=== PATIENT | male | born 1975 ===

== ENCOUNTER 2017-10-30 20:34 | Observation (INO) | payer SELFPAY ==
[2017-10-30] MEDS ORDERED: Multivitamin (MVI) 10 ML, Thiamine 100 MG, Folic Acid 1 MG in Dextrose 5%/0.45% NS 1,00... IV ONE (22:21)
[2017-10-30 22:53] LABS: BASO % 0.7 % (0.0-2.0); EOS % 0.4 % (0.0-4.0); HEMOGLOBIN 15.1 g/dL (12.0-18.0); LYMPH # 1.7 K/uL (1.0-4.3); MEAN CELL VOLUME 91.2 fl (80.0-94.0); MEAN CORPUSCULAR HEMOGLOBIN 30.9 pg (27.0-31.0); MEAN CORPUSCULAR HGB CONC 33.8 g/dL (33.0-37.0); MEAN PLATELET VOLUME 9.5 fl (7.2-11.7); MONO # 0.2 K/uL (0.0-0.8); MONO % 3.2 % (0.0-10.0); NEUT # 3.9 K/uL (1.8-7.0); NEUT % 66.7 % (50.0-75.0); NRBC % 0.3 % (0.0-0.0); RBC 4.89 Mil/uL (4.40-5.90); RED CELL DISTRIBUTION WIDTH 13.2 % (11.5-14.5); WHITE BLOOD COUNT 5.9 K/uL (4.8-10.8)
--- NOTE | 2017-10-30 22:59 | ED PDOC ---
HPI: Psych/Substance Abuse Chief Complaint (Provider): Alcohol Ingestion ED Caveat: Intoxicated History Per: Patient History/Exam Limitations: no limitations Onset/Duration Of Symptoms: Mins (prior to arrival) Current Symptoms Are (Timing): Still Present Additional Complaint(s): 42 year old male brought in for alcohol intoxication. Patient admits to drinking tonight. Because of his condition, there is a limited history. PMD: none provided <Paulie Dela Cruz - Last Filed: 10/31/17 01:19> <Natividad Hutton PA-C - Last Filed: 10/31/17 01:41> Time Seen by Provider: 10/30/17 21:09 Chief Complaint (Nursing): Alcohol Ingestion Past Medical History Reviewed: Historical Data, Nursing Documentation, Vital Signs, Unable To Obtain (due to intoxication) Vital Signs: Last Vital Signs Temp 98.4 F 10/30/17 20:47 Pulse 94 H 10/30/17 22:35 Resp 20 10/30/17 22:35 BP 100/60 10/30/17 22:35 Pulse Ox 95 10/30/17 22:35 - Family History Family History: States: Unknown Family Hx <Paulie Dela Cruz - Last Filed: 10/31/17 01:19> Vital Signs: Last Vital Signs Temp 98.4 F 10/30/17 20:47 Pulse 94 H 10/30/17 22:50 Resp 17 10/30/17 22:50 BP 124/99 H 10/30/17 22:50 Pulse Ox 95 10/31/17 01:24 <Natividad Hutton PA-C - Last Filed: 10/31/17 01:41> - Allergies Allergies/Adverse Reactions: Allergies Allergy/AdvReac Type Severity Reaction Status Date / Time No Known Allergies Allergy Verified 10/30/17 20:47 Review of Systems ROS Statement: Except As Marked, All Systems Reviewed And Found Negative Review Of Systems: ROS cannot be obtained secondary to pt's inabilty to answer questions. (due to intoxication) <Paulie Dela Cruz - Last Filed: 10/31/17 01:19> Physical Exam - Reviewed Nursing Documentation Reviewed: Yes Vital Signs Reviewed: Yes - Physical Exam Comments: GENERAL APPEARANCE: Patient is intoxicated, smells of alcohol, (-) signs of visible injury SKIN: Warm, dry; (-) cyanosis HEAD: (-) scalp swelling, (-) scalp tenderness. EYES: (-) conjunctival pallor, (-) scleral icterus, (-) nystagmus, (+) PEERL, EOMI, normal inspection ENMT: Mucous membranes dry. Airway patent: (-) stridor. NECK: (+) normal ROM (+) supple CHEST AND RESPIRATORY: (+) breath sounds equal. ABDOMEN: Soft, (-) distention, (-) tenderness, (-) guarding. NEURO AND PSYCH: Mental status as above. <Paulie Dela Cruz - Last Filed: 10/31/17 01:19> - Laboratory Results Result Diagrams: 10/30/17 22:40 10/30/17 22:40 - ECG O2 Sat by Pulse Oximetry: 95 (RA) Pulse Ox Interpretation: Normal <Paulie Dela Cruz - Last Filed: 10/31/17 01:19> - Laboratory Results Result Diagrams: 10/30/17 22:40 10/30/17 22:40 <Natividad Hutton PA-C - Last Filed: 10/31/17 01:41> Medical Decision Making Medical Decision Making: Time: 22:20 Initial Plan: --alcohol serum --CMP --CBC with differentials --Normal Saline 1,000 mls/hr IV --1:1 observation --Restraint: violent or risk of elopement Fingerstick was 440. Therefore labs were drawn, 1 L NS Bolus IV ordered. Labs reviewed, CBC within normal limits, CMP patient's glucose was 505. Patient noted to have anion gap. VBG ordered. VBG shows acidosis with pH 7.3 but CO2 was within normal limits. Repeat fingerstick after NS Bolus 334. Second Bolus ordered and Insulin IV administered. On reevaluation, patient is arousable however speaking is still slurred and speaking in [place]. When asked about medications for diabetes, he is unable to provide a coherent answer. Case discussed with Dr. Jackson, who agrees with plan for further inpatient observation with Telemetry for diagnoses for diagnosis of diabetes and hyperglycemia, He agrees with current treatment at this time. Scribe Attestation: Documented by Alexandrea Gardner, acting as a scribe for Natividad Hutton PA-C. Provider Scribe Attestation: All medical record entries made by the Scribe were at my direction and personally dictated by me. I have reviewed the chart and agree that the record accurately reflects my personal performance of the history, physical exam, medical decision making, and the department course for this patient. I have also personally directed, reviewed, and agree with the discharge instructions and disposition. <Paulie Dela Cruz - Last Filed: 10/31/17 01:19> Disposition <Paulie Dela Cruz - Last Filed: 10/31/17 01:19> - Patient ED Disposition Is Patient to be Admitted: Yes - Disposition Disposition Time: 01:00 <Natividad Hutton PA-C - Last Filed: 10/31/17 01:41> - Clinical Impression Clinical Impression: Alcohol intoxication, Dehydration, Hyperglycemia - Disposition Condition: STABLE - PA / [employer] / Resident Statement / has reviewed & agrees with the documentation as recorded. <Natividad Hutton PA-C - Last Filed: 10/31/17 01:41>
[2017-10-30] MEDS ORDERED: Sodium Chloride 0.9% 1,000 ML IV SCH (23:00)
[2017-10-30 23:56] LABS: ALB/GLOB RATIO 1.3 (1.0-2.1); ALBUMIN 4.5 g/dL (3.5-5.0); ALT/SGPT 28 U/L (21-72); AST/SGOT 47 U/L (17-59); BLOOD UREA NITROGEN 14 mg/dl (9-20); CALCIUM 9.3 mg/dL (8.4-10.2); GFR AFRICAN-AMERICAN > 60; GFR NON-AFRICAN AMERICAN > 60
[2017-10-31 01:03] LABS: VENOUS BLOOD GAS BASE EXCESS -5.5 mmol/L (0.0-2.0); VENOUS BLOOD GAS PCO2 42 mmHg (40-60); VENOUS BLOOD GAS PO2 78 mm/Hg (30-55)
[2017-10-31] MEDS ORDERED: Sodium Chloride 0.9% 1,000 ML IV STA (01:04)
[2017-10-31] MEDS ORDERED: Insulin Regular 100 units/ml IV STA (01:04)
--- NOTE | 2017-10-31 01:31 | CP.PCM.HP ---
History of Present Illness - History of Present Illness History of Present Illness: CC: EtOH intoxication; found with elevated serum glucose/acidosis HPI: This is a 42 y/o male with DM2 and EtOH abuse. He comes in after drinking heavily with elevated ser glucose and acidosis. Denies ingesting anything besides EtOH. Unclear when he last took his medications. Given his intoxication , history is dubious. MHx: DM2, EtOH abuse SHx: Unable to obtain due to intoxication Allergies: NKDA Medications: unknown at this time Family Hx: Cannot obtain due to intoxication Social Hx: Cannot obtain living situation, patient does clearly abuse EtOH, unknown tobacco Present on Admission - Present on Admission Any Indicators Present on Admission: No Meds Allergies/Adverse Reactions: Allergies Allergy/AdvReac Type Severity Reaction Status Date / Time No Known Allergies Allergy Verified 10/30/17 20:47 Physical Exam - Constitutional Additional comments: intoxicated - Head Exam Head Exam: ATRAUMATIC, NORMOCEPHALIC - Eye Exam Eye Exam: EOMI, PERRL - ENT Exam ENT Exam: Mucous Membranes Dry - Neck Exam Neck exam: Positive for: Full Rom - Respiratory Exam Respiratory Exam: Clear to Auscultation Bilateral, NORMAL BREATHING PATTERN - Cardiovascular Exam Cardiovascular Exam: REGULAR RHYTHM, +S1, +S2 - GI/Abdominal Exam GI & Abdominal Exam: Normal Bowel Sounds, Soft - Extremities Exam Extremities exam: Positive for: full ROM, normal inspection - Neurological Exam Neurological exam: Alert, CN II-XII Intact, Oriented x3 - Skin Skin Exam: Dry, Warm Results - Vital Signs Recent Vital Signs: Last Vital Signs Temp 98.4 F 10/30/17 20:47 Pulse 94 H 10/30/17 22:50 Resp 17 10/30/17 22:50 BP 124/99 H 10/30/17 22:50 Pulse Ox 95 10/31/17 01:24 - Labs Result Diagrams: 10/30/17 22:40 10/30/17 22:40 Labs: Laboratory Results - last 24 hr 10/30/17 10/30/17 10/30/17 22:40 22:40 22:41 WBC 5.9 RBC 4.89 Hgb 15.1 Hct 44.6 MCV 91.2 MCH 30.9 MCHC 33.8 RDW 13.2 Plt Count 311 MPV 9.5 Neut % (Auto) 66.7 Lymph % (Auto) 29.0 [place] % (Auto) 3.2 Eos % (Auto) 0.4 Baso % (Auto) 0.7 Neut # (Auto) 3.9 Lymph # (Auto) 1.7 [place] # (Auto) 0.2 Eos # (Auto) 0.0 Baso # (Auto) 0.0 pO2 VBG pH VBG pCO2 VBG HCO3 VBG Total CO2 VBG O2 Sat (Calc) VBG Base Excess VBG Potassium Glucose Lactate FiO2 Crit Value Called To Crit Value Called By Crit Value Read Back Blood Gas Notified Time Sodium 144 Potassium 4.9 Chloride 99 Carbon Dioxide 21 L Anion Gap 29 H BUN 14 Creatinine 0.6 L Est GFR ( Amer) > 60 Est GFR (Non-Af Amer) > 60 POC Glucose (mg/dL) 440 H* Random Glucose 505 H* Calcium 9.3 Total Bilirubin 1.0 AST 47 ALT 28 Alkaline Phosphatase 80 Total Protein 7.8 Albumin 4.5 Globulin 3.3 Albumin/Globulin Ratio 1.3 Venous Blood Potassium Alcohol, Quantitative 375 H* 10/31/17 10/31/17 00:51 01:10 WBC RBC Hgb Hct MCV MCH MCHC RDW Plt Count MPV Neut % (Auto) Lymph % (Auto) [place] % (Auto) Eos % (Auto) Baso % (Auto) Neut # (Auto) Lymph # (Auto) [place] # (Auto) Eos # (Auto) Baso # (Auto) pO2 78 H VBG pH 7.30 L VBG pCO2 42 VBG HCO3 20.5 VBG Total CO2 22.0 VBG O2 Sat (Calc) 94.2 H VBG Base Excess -5.5 L VBG Potassium 3.8 Glucose 514 H* Lactate 4.9 H* FiO2 21.0 Crit Value Called To Jose De Jesus ordonez md Crit Value Called By 302 Crit Value Read Back Y Blood Gas Notified Time 103 Sodium 142.0 Potassium Chloride 103.0 Carbon Dioxide Anion Gap BUN Creatinine Est GFR ( Amer) Est GFR (Non-Af Amer) POC Glucose (mg/dL) 363 H Random Glucose Calcium Total Bilirubin AST ALT Alkaline Phosphatase Total Protein Albumin Globulin Albumin/Globulin Ratio Venous Blood Potassium 3.8 Alcohol, Quantitative Assessment & Plan (1) Elevated ETOH level Assessment and Plan: 42 y/o male presenting with elevated serum glucose and some acidosis in setting of EtOH abuse and not taking DM2 medications. Acidosis is most likely DKA. -NPO for now -Aggressive IV hydration -q6h accucheck with SSI; patient glucose is improving -Repeat EtOH level in AM -1:1 obs -SCDs for DVT PPx Status: Acute (2) ETOH abuse Status: Acute (3) Uncontrolled type 2 diabetes mellitus Status: Acute (4) Acidosis due to type 2 diabetes mellitus Status: Acute (5) DVT prophylaxis Status: Acute
[2017-10-31] MEDS ORDERED: Insulin Regular 100 units/ml ONE (01:43)
[2017-10-31 03:20] LABS: SQUAMOUS EPITHIAL < 1 /hpf (0-5); URINE BILIRUBIN NEGATIVE (NEGATIVE); URINE BLOOD NEGATIVE (NEGATIVE); URINE CLARITY CLEAR (Clear); URINE COLOR STRAW (YELLOW); URINE GLUCOSE (UA) >=500 mg/dL (Normal); URINE LEUKOCYTE ESTERASE NEG Leu/uL (Negative); URINE PROTEIN NEGATIVE (NEGATIVE); URINE UROBILINOGEN 0.2-1.0 mg/dL (0.2-1.0)
[2017-10-31] MEDS: Lactated Ringer's 1,000 ML IV SCH ×2 (05:28→08:55)
[2017-10-31] MEDS: Insulin Lispro (humaLOG) 100 Units/ml Inj SC SCH ×3 (06:48→16:52)
[2017-10-31 07:44] LABS: ALB/GLOB RATIO 1.2 (1.0-2.1); ALBUMIN 3.2 g/dL (3.5-5.0); ALT/SGPT 32 U/L (21-72); AST/SGOT 19 U/L (17-59); BLOOD UREA NITROGEN 10 mg/dl (9-20); CALCIUM 7.8 mg/dL (8.4-10.2); GFR AFRICAN-AMERICAN > 60; GFR NON-AFRICAN AMERICAN > 60
[2017-10-31] MEDS ORDERED: Insulin Detemir 100 Units/ml Inj SC STA (07:56)
[2017-10-31] MEDS ORDERED: Thiamine 100 mg/ml Inj IV STA (07:56)
[2017-10-31 08:19] LABS: BLOOD UREA NITROGEN 10 mg/dl (9-20); CALCIUM 7.9 mg/dL (8.4-10.2); GFR AFRICAN-AMERICAN > 60; GFR NON-AFRICAN AMERICAN > 60
[2017-10-31 08:46] VITALS: RESP 20
[2017-10-31] MEDS ORDERED: Sodium Chloride 0.9% 1,000 ML IV SCH (10:30)
[2017-10-31 11:57] VITALS: O2SAT 97
[2017-10-31 16:20] VITALS: BP 112/66; PULSE 79; TEMP 97.9
[2017-10-31 16:54] LABS: BLOOD UREA NITROGEN 10 mg/dl (9-20); CALCIUM 8.2 mg/dL (8.4-10.2); GFR AFRICAN-AMERICAN > 60; GFR NON-AFRICAN AMERICAN > 60
[2017-10-31] MEDS ORDERED: Magnesium Oxide 400 mg Tab UD PO STA (17:23)
[2017-10-31] MEDS ORDERED: Potassium Chloride 20 mEq ER Tab PO ONE (17:23)
== END 2017-10-31 18:00 | disposition left against medical advice (07) ==
LOC: H.ER 20:34 → H.ERHOLD 10-31 01:17 → H.TEL 10-31 04:54
PROVIDERS: ADMIT Internal Medicine; ATTEND Internal Medicine
DX: F10.129 Alcohol abuse with intoxication, unspecified (principal); Y90.8 Blood alcohol level of 240 mg/100 ml or more; E86.0 Dehydration; E87.6 Hypokalemia; E83.42 Hypomagnesemia; E11.10 Type 2 diabetes mellitus with ketoacidosis without coma
CPT/HCPCS: 80053; 81003; 82803; 82948; 83605; 83735; 83930; 84100; 85025; 99285; G0378; G0480; J2405; J3411; J7040; J7120